=== PATIENT | male | born 1975 | race Caucasian/White ===

== ENCOUNTER 2020-01-30 17:00 | Emergency (ER) | payer SELFPAY ==
[~2020-01-30] VITALS: Ht 193 cm; Wt 102.1 kg
[2020-01-30 17:00] VITALS: BP 177/105
--- NOTE | 2020-01-30 17:00 | NUR ---
PT BIB [facility] AND PLACED IN BED 11.
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
[2020-01-30] MEDS ORDERED: ACETAMINOPHEN 325 MG TAB PO ONE (17:50)
--- NOTE | 2020-01-30 17:56 | NUR ---
X-Ray at bedside.
--- NOTE | 2020-01-30 18:05 | NUR ---
IV ESTABLISHED TO RIGHT AC 18 GAUGE, SECURED WITH TAGADERM AND TAPE. BLOOD DRAWN AND SENT TO LAB. PT TOLERATED WELL. CONVERTED TO SALINE LOCK.
[2020-01-30 18:19] LABS: BASOPHILS # (AUTO) 0.1 K/uL (0.00-0.22); BASOPHILS % (AUTO) 1.3 % (0.0-2.0); EOSINOPHILS # (AUTO) 0.1 K/uL (0-0.4); EOSINOPHILS % (AUTO) 1.4 % (0.0-4.0); HEMATOCRIT 44.2 % (36-52); HEMOGLOBIN 14.8 g/dL (12.0-18.0); LYMPHOCYTES # (AUTO) 1.2 K/uL (2.0-11.5); LYMPHOCYTES % (AUTO) 12.4 % (20.5-51.1); MEAN CORPUSCULAR HEMOGLOBIN 29 pg (27-31); MEAN CORPUSCULAR HGB CONC 34 g/dL (33-37); MONOCYTES # (AUTO) 0.6 K/uL (0.8-1.0); MONOCYTES % (AUTO) 5.6 % (1.7-9.3); NEUTROPHILS # (AUTO) 7.8 K/uL (1.8-7.7); NEUTROPHILS % (AUTO) 79.3 % (42.2-75.2); PLATELET COUNT (AUTO) 348 K/uL (140-450); RED CELL DISTRIBUTION WIDTH 13.1 % (11.6-13.7); WHITE BLOOD COUNT (AUTO) 9.8 K/uL (4.8-10.8)
--- NOTE | 2020-01-30 18:22 | NUR ---
CONSENT FOR CT OF ABDOMEN SIGNED BY PATIENT AND DR. OBREGON.
[2020-01-30 18:37] LABS: ANION GAP 14.5 (8-16); CARBON DIOXIDE 22.2 mmol/L (21-32); POTASSIUM 3.7 mmol/L (3.5-5.1)
[2020-01-30 18:44] LABS: ALBUMIN 4.1 g/dL (3.4-5.0); TOTAL BILIRUBIN 0.3 mg/dL (0.0-1.0)
--- NOTE | 2020-01-30 19:30 | NUR ---
IV removed, catheter intact and site benign. Applied folded 4x4 gauze and tape to stop bleeding.
--- NOTE | 2020-01-30 19:53 | NUR ---
PATIENT BIB [employer]. PATIENT EXAMINED BY DR OBREGON. PATIENT MEDICALLY CLEARED AND RELEASED IN CUSTODY IN STABLE CONDITION. ORIGINAL PRE-BOOK FORM GIVEN TO OFFICER [place], #[id number].
== END 2020-01-30 19:53 | disposition home or self-care (01) ==
LOC: MED 17:00
DX: F10.129 Alcohol abuse with intoxication, unspecified (principal); M54.5 Low back pain; M54.2 Cervicalgia; Z02.89 Encounter for other administrative examinations; E11.9 Type 2 diabetes mellitus without complications; I10 Essential (primary) hypertension
CPT/HCPCS: 36415; 70450; 71045; 72125; 72170; 74177; 80053; 85025; 99285; G0482; Q9967